=== PATIENT | female | born 1955 | race Caucasian/White ===

== ENCOUNTER 2017-02-12 19:28 | Inpatient (IN) | payer OTHER ==
[~2017-02-12] VITALS: Ht 157.5 cm; Wt 72.6 kg
[2017-02-12 20:24] LABS: BASOPHIL % 0.2 % (0-2); PLATELET COUNT 257 x10^3mcL (130-400)
[2017-02-12 20:32] LABS: CALCIUM 8.6 mg/dL (8.5-10.1); CARBON DIOXIDE 30.2 mmol/L (21-32); CHLORIDE SERUM 104 mmol/L (98-107); CREATININE SERUM 0.8 mg/dL (0.6-1.0); GFR1 > 60 mL/min; GLUCOSE SERUM 94 mg/dL (74-106); POTASSIUM SERUM 3.2 mmol/L (3.5-5.1); SODIUM SERUM 141 mmol/L (136-145)
[2017-02-12 20:37] LABS: ALBUMIN 3.5 g/dL (3.4-5.0); ALKALINE PHOSPHATASE 90 U/L (46-116); ALT/SGPT 18 U/L (14-59); AST/SGOT 12 U/L (15-37); BILIRUBIN TOTAL 0.5 mg/dL (0.20-1.00); CHOLESTEROL 185 mg/dL (<200); HDL CHOLESTEROL 67 mg/dL (40-60); MAGNESIUM 2.1 mg/dL (1.8-2.4); TOTAL PROTEIN, SERUM 6.9 g/dL (6.4-8.2)
[2017-02-12] MEDS ORDERED: LISINOPRIL20 MG PO (21:08)
[2017-02-12] MEDS ORDERED: PAROXETINE40 M1 PO (21:09)
[2017-02-12 22:44] VITALS: BP 148/77
[2017-02-12 23:32] LABS: UA SPECIFIC GRAVITY <=1.005 (1.005-1.035); microscopic required? YES; urine erythrocyte TRACE (NEGATIVE)
[2017-02-13 05:11] VITALS: BP 135/69
[2017-02-13 07:37] LABS: CALCIUM 8.4 mg/dL (8.5-10.1); CARBON DIOXIDE 30.6 mmol/L (21-32); CHLORIDE SERUM 109 mmol/L (98-107); CREATININE SERUM 0.8 mg/dL (0.6-1.0); GFR1 > 60 mL/min; GLUCOSE SERUM 98 mg/dL (74-106); POTASSIUM SERUM 3.8 mmol/L (3.5-5.1); SODIUM SERUM 144 mmol/L (136-145)
[2017-02-13 09:30] VITALS: BP 131/75
[2017-02-13 13:20] VITALS: BP 126/75
[2017-02-13 17:22] VITALS: BP 124/71
[2017-02-13 21:41] VITALS: BP 125/93
[2017-02-14 06:02] VITALS: BP 112/60
[2017-02-14 06:23] LABS: CALCIUM 8.5 mg/dL (8.5-10.1); CARBON DIOXIDE 32.3 mmol/L (21-32); CHLORIDE SERUM 108 mmol/L (98-107); CREATININE SERUM 0.8 mg/dL (0.6-1.0); GFR1 > 60 mL/min; GLUCOSE SERUM 91 mg/dL (74-106); PHOSPHOROUS 3.5 mg/dL (2.5-4.9); POTASSIUM SERUM 4.2 mmol/L (3.5-5.1); SODIUM SERUM 141 mmol/L (136-145)
[2017-02-14 06:41] LABS: BASOPHIL % 0.4 % (0-2); PLATELET COUNT 225 x10^3mcL (130-400); RED CELL DISTRIBUTION WIDTH 13.3 % (11.5-14.5)
[2017-02-14 09:29] VITALS: BP 123/65
[2017-02-14] MEDS ORDERED: TEARS AGAIN15 ML OP ×2 (13:56→15:58)
[2017-02-14] MEDS ORDERED: MAC100 PO ×2 (13:57→15:58)
[2017-02-14] MEDS ORDERED: BD LACTINEX1.4 MG PO ×2 (13:58→15:58)
[2017-02-14 14:22] VITALS: BP 123/65
== END 2017-02-14 16:05 | disposition home or self-care (01) | DRG 48 ==
LOC: ED 19:28 → DU 21:00 → MU 02-14 06:43
PROVIDERS: Emergency Medicine; ADMIT Family Medicine
DX: G90.9 Disorder of the autonomic nervous system, unspecified (principal); I10 Essential (primary) hypertension; H57.12 Ocular pain, left eye; E87.6 Hypokalemia; Z68.29 Body mass index [BMI] 29.0-29.9, adult; F32.9 Major depressive disorder, single episode, unspecified; N39.0 Urinary tract infection, site not specified
CPT/HCPCS: 83880; J7030; J8597; Q0092

== ENCOUNTER 2017-02-24 08:57 | Emergency (ER) | payer OTHER ==
[~2017-02-24 08:57] MED LIST: BD LACTINEX1.4 MG PO; LISINOPRIL20 MG PO; MAC100 PO; PAROXETINE40 M1 PO; TEARS AGAIN15 ML OP
[2017-02-24 09:51] LABS: BASOPHIL % 0.4 % (0-2); PLATELET COUNT 290 x10^3mcL (130-400); RED CELL DISTRIBUTION WIDTH 13.6 % (11.5-14.5)
[2017-02-24 09:58] LABS: CALCIUM 8.8 mg/dL (8.5-10.1); CARBON DIOXIDE 30.5 mmol/L (21-32); CHLORIDE SERUM 103 mmol/L (98-107); CREATININE SERUM 0.8 mg/dL (0.6-1.0); GFR1 > 60 mL/min; GLUCOSE SERUM 96 mg/dL (74-106); POTASSIUM SERUM 3.5 mmol/L (3.5-5.1); SODIUM SERUM 140 mmol/L (136-145)
[2017-02-24 10:03] LABS: ALBUMIN 3.9 g/dL (3.4-5.0); ALKALINE PHOSPHATASE 110 U/L (46-116); ALT/SGPT 21 U/L (14-59); AST/SGOT 12 U/L (15-37); BILIRUBIN TOTAL 0.4 mg/dL (0.20-1.00); TOTAL PROTEIN, SERUM 7.6 g/dL (6.4-8.2)
[2017-02-24 11:26] VITALS: BP 143/78
== END 2017-02-24 11:26 | disposition home or self-care (01) ==
LOC: ED 08:57
PROVIDERS: Emergency Medicine
DX: I16.0 Hypertensive urgency (principal)
CPT/HCPCS: 36415; 83880; J1885; Q0092

== ENCOUNTER 2017-03-29 01:38 | Inpatient (IN) | payer OTHER ==
[~2017-03-29] VITALS: Ht 157.5 cm; Wt 79.5 kg
[2017-03-29 02:29] LABS: RED CELL DISTRIBUTION WIDTH 12.5 % (11.5-14.5)
[2017-03-29 02:33] LABS: CALCIUM 8.6 mg/dL (8.5-10.1); CARBON DIOXIDE 31.3 mmol/L (21-32); CHLORIDE SERUM 105 mmol/L (98-107); CREATININE SERUM 0.7 mg/dL (0.6-1.0); GFR1 > 60 mL/min; GLUCOSE SERUM 96 mg/dL (74-106); SODIUM SERUM 140 mmol/L (136-145)
[2017-03-29 02:38] LABS: ALKALINE PHOSPHATASE 78 U/L (46-116); ALT/SGPT 16 U/L (14-59); AST/SGOT 15 U/L (15-37); BILIRUBIN TOTAL 0.53 mg/dL (0.20-1.00); LIPASE 147 IU/L (73-393); TOTAL PROTEIN, SERUM 6.4 g/dL (6.4-8.2)
[2017-03-29 02:39] LABS: ALBUMIN 3.3 g/dL (3.4-5.0)
[2017-03-29 03:10] LABS: BASOPHIL % 4.1 % (0-2); PLATELET COUNT 250 x10^3mcL (130-400)
[2017-03-29 03:23] LABS: UA SPECIFIC GRAVITY <=1.005 (1.005-1.035); microscopic required? YES; urine erythrocyte 3+ (NEGATIVE)
[2017-03-29 05:06] LABS: T3 TOTAL 1.03 ng/mL
[2017-03-29 05:14] VITALS: BP 142/75
[2017-03-29 05:16] LABS: MAGNESIUM 1.8 mg/dL (1.8-2.4); PHOSPHOROUS 3.8 mg/dL (2.5-4.9)
[2017-03-29 05:25] LABS: CHOLESTEROL/HDL RATIO 2.5
[2017-03-29 05:28] LABS: FREE T4 1.3 ng/dL (0.76-1.46); FREE THYROXINE INDEX 2.8 ug/dL (1.4-4.5); T4(THYROXINE) 7.5 ug/dL (4.7-13.3)
[2017-03-29 08:37] LABS: AMPHETAMINE QUAL UR NONE DETECTED (NEG <=1000)
[2017-03-29 13:40] VITALS: BP 124/67
[2017-03-29 18:00] VITALS: BP 150/77
[2017-03-29 21:11] VITALS: BP 154/87
[2017-03-30 06:04] VITALS: BP 151/77
[2017-03-30 06:40] LABS: BASOPHIL % 0.4 % (0-2); PLATELET COUNT 192 x10^3mcL (130-400); RED CELL DISTRIBUTION WIDTH 13.5 % (11.5-14.5)
[2017-03-30 06:43] LABS: CALCIUM 8.5 mg/dL (8.5-10.1); CARBON DIOXIDE 30.5 mmol/L (21-32); CHLORIDE SERUM 108 mmol/L (98-107); CREATININE SERUM 0.6 mg/dL (0.6-1.0); GFR1 > 60 mL/min; GLUCOSE SERUM 89 mg/dL (74-106); POTASSIUM SERUM 3.7 mmol/L (3.5-5.1); SODIUM SERUM 145 mmol/L (136-145)
[2017-03-30 11:00] VITALS: BP 124/62
[2017-03-30 12:20] VITALS: BP 120/63
[2017-03-30 14:06] VITALS: BP 115/56
[2017-03-30 17:12] VITALS: BP 139/70
[2017-03-30 20:20] VITALS: BP 136/69
[2017-03-30 20:29] VITALS: Ht 157.5 cm; Wt 79.5 kg
[2017-03-31 05:38] VITALS: BP 141/68
[2017-03-31 06:19] LABS: CALCIUM 8.8 mg/dL (8.5-10.1); CHLORIDE SERUM 107 mmol/L (98-107); CREATININE SERUM 0.7 mg/dL (0.6-1.0); GFR1 > 60 mL/min; GLUCOSE SERUM 95 mg/dL (74-106); POTASSIUM SERUM 3.6 mmol/L (3.5-5.1); SODIUM SERUM 144 mmol/L (136-145)
[2017-03-31 06:26] LABS: BASOPHIL % 0.2 % (0-2); PLATELET COUNT 208 x10^3mcL (130-400); RED CELL DISTRIBUTION WIDTH 13.2 % (11.5-14.5)
[2017-03-31 10:14] VITALS: BP 143/68
[2017-03-31 14:10] VITALS: BP 125/71
[2017-03-31 18:00] VITALS: BP 145/67
[2017-03-31 20:59] VITALS: BP 157/69
[2017-04-01 05:55] VITALS: BP 155/76
[2017-04-01 07:02] LABS: CALCIUM 8.4 mg/dL (8.5-10.1); CARBON DIOXIDE 32.5 mmol/L (21-32); CHLORIDE SERUM 107 mmol/L (98-107); CREATININE SERUM 0.7 mg/dL (0.6-1.0); GFR1 > 60 mL/min; GLUCOSE SERUM 91 mg/dL (74-106); POTASSIUM SERUM 3.4 mmol/L (3.5-5.1); SODIUM SERUM 143 mmol/L (136-145)
[2017-04-01 07:03] LABS: BASOPHIL % 0.3 % (0-2); PLATELET COUNT 187 x10^3mcL (130-400); RED CELL DISTRIBUTION WIDTH 13.2 % (11.5-14.5)
[2017-04-01 08:42] VITALS: BP 124/66
[2017-04-01 13:42] VITALS: BP 142/66
[2017-04-01 18:05] VITALS: BP 142/67
[2017-04-01 22:29] VITALS: BP 143/67
[2017-04-02 06:35] VITALS: BP 149/70
[2017-04-02 06:41] LABS: CALCIUM 8.6 mg/dL (8.5-10.1); CARBON DIOXIDE 29.1 mmol/L (21-32); CHLORIDE SERUM 102 mmol/L (98-107); CREATININE SERUM 0.7 mg/dL (0.6-1.0); GFR1 > 60 mL/min; GLUCOSE SERUM 83 mg/dL (74-106); SODIUM SERUM 142 mmol/L (136-145)
[2017-04-02 07:07] LABS: BASOPHIL % 0.3 % (0-2); PLATELET COUNT 217 x10^3mcL (130-400)
[2017-04-02 07:35] VITALS: BP 148/71
[2017-04-02 14:21] VITALS: BP 128/69
[2017-04-02 17:49] VITALS: BP 148/71
[2017-04-02 20:55] VITALS: BP 142/66
[2017-04-03 05:45] VITALS: BP 164/77
[2017-04-03 06:24] LABS: BASOPHIL % 0.5 % (0-2); PLATELET COUNT 200 x10^3mcL (130-400); RED CELL DISTRIBUTION WIDTH 13.2 % (11.5-14.5)
[2017-04-03 06:47] LABS: CALCIUM 8.7 mg/dL (8.5-10.1); CARBON DIOXIDE 29.4 mmol/L (21-32); CHLORIDE SERUM 107 mmol/L (98-107); CREATININE SERUM 0.6 mg/dL (0.6-1.0); GFR1 > 60 mL/min; GLUCOSE SERUM 93 mg/dL (74-106); POTASSIUM SERUM 3.1 mmol/L (3.5-5.1); SODIUM SERUM 146 mmol/L (136-145)
[2017-04-03 07:30] VITALS: BP 149/60
[2017-04-03] MEDS ORDERED: TRAMADOL HCL50 MG PO (09:04)
[2017-04-03] MEDS ORDERED: COLACE100 MG PO (09:05)
[2017-04-03 09:06] VITALS: BP 124/69
[2017-04-03 13:33] VITALS: BP 124/69
== END 2017-04-03 15:13 | disposition home or self-care (01) | DRG 227 ==
LOC: ED 01:38 → DU 03:29 → MU 04-01 23:53
PROVIDERS: Emergency Medicine; Surgery; ADMIT Family Medicine
PROC: 0WQF0ZZ Repair Abdominal Wall, Open Approach (ICD-10-PCS; principal; 2017-03-30 08:00)
DX: K42.0 Umbilical hernia with obstruction, without gangrene (principal); E44.0 Moderate protein-calorie malnutrition; E87.6 Hypokalemia; N39.0 Urinary tract infection, site not specified; R31.9 Hematuria, unspecified; F32.9 Major depressive disorder, single episode, unspecified; I10 Essential (primary) hypertension; Z68.32 Body mass index [BMI] 32.0-32.9, adult; Z86.73 Personal history of transient ischemic attack (TIA), and cerebral infarction without residual deficits
CPT/HCPCS: 83880; 84439; 94150; 97110-GP; 97116-GP; 97530-GP; J0330; J0690; J0696; J1170; J1885; J2250; J2270; J2405; J2704; J3010; J3480; J3490; J7030; J7050; J7120; Q0092; Q9967

== ENCOUNTER 2017-11-23 08:17 | Emergency (ER) | payer OTHER ==
[~2017-11-23] VITALS: Ht 157.5 cm; Wt 83.5 kg
[~2017-11-23 08:17] MED LIST changes: +COLACE100 MG PO; +TRAMADOL HCL50 MG PO
[2017-11-23 08:21] VITALS: Ht 157.5 cm; Wt 83.5 kg
[2017-11-23 08:47] LABS: BASOPHIL % 0.3 % (0-2); PLATELET COUNT 250 x10^3mcL (130-400); RED CELL DISTRIBUTION WIDTH 13.8 % (11.5-14.5)
[2017-11-23 09:26] LABS: CALCIUM 9.5 mg/dL (8.5-10.1); CARBON DIOXIDE 29.4 mmol/L (21-32); CHLORIDE SERUM 101 mmol/L (98-107); CREATININE SERUM 0.8 mg/dL (0.6-1.0); GFR1 > 60 mL/min; GLUCOSE SERUM 105 mg/dL (74-106); POTASSIUM SERUM 4.1 mmol/L (3.5-5.1); SODIUM SERUM 137 mmol/L (136-145)
[2017-11-23 09:36] LABS: ALKALINE PHOSPHATASE 100 U/L (46-116); ALT/SGPT 29 U/L (14-59); AST/SGOT 19 U/L (15-37); BILIRUBIN TOTAL 1.58 mg/dL (0.20-1.00); TOTAL PROTEIN, SERUM 7.7 g/dL (6.4-8.2)
[2017-11-23 12:01] VITALS: BP 126/55
== END 2017-11-23 13:57 | disposition home or self-care (01) ==
LOC: ED 08:17
DX: R07.89 Other chest pain (principal); R51 Headache; I10 Essential (primary) hypertension; Z86.73 Personal history of transient ischemic attack (TIA), and cerebral infarction without residual deficits
CPT/HCPCS: 36415; 83880; Q0092

== ENCOUNTER 2018-01-15 11:17 | Inpatient (IN) | payer OTHER ==
[~2018-01-15] VITALS: Ht 157.5 cm; Wt 83.6 kg
[2018-01-15 11:51] LABS: BASOPHIL % 0.5 % (0-2); PLATELET COUNT 285 x10^3mcL (130-400)
[2018-01-15 11:58] LABS: CARBON DIOXIDE 30.6 mmol/L (21-32); CHLORIDE SERUM 103 mmol/L (98-107); CREATININE SERUM 0.9 mg/dL (0.6-1.0); GFR1 > 60 mL/min; GLUCOSE SERUM 132 mg/dL (74-106); SODIUM SERUM 142 mmol/L (136-145)
[2018-01-15 12:00] LABS: POTASSIUM SERUM 2.9 mmol/L (3.5-5.1)
[2018-01-15] MEDS ORDERED: FUROSEMIDE20 MG PO (12:28)
[2018-01-15] MEDS ORDERED: LISINOPRIL40 MG PO (12:28)
[2018-01-15] MEDS ORDERED: PAXIL CR25 MG PO (12:28)
[2018-01-15 13:12] LABS: MAGNESIUM 1.9 mg/dL (1.8-2.4); PHOSPHOROUS 3.4 mg/dL (2.5-4.9)
[2018-01-15 13:13] LABS: CHOLESTEROL/HDL RATIO 2.5
[2018-01-15 13:14] LABS: T3 TOTAL 0.96 ng/mL
[2018-01-15 13:23] LABS: FREE T4 1.07 ng/dL (0.76-1.46); FREE THYROXINE INDEX 2.5 ug/dL (1.4-4.5); T4(THYROXINE) 7.7 ug/dL (4.7-13.3)
[2018-01-15 13:36] VITALS: BP 148/85
[2018-01-15 13:46] VITALS: Ht 157.5 cm; Wt 83.6 kg
[2018-01-15 14:06] VITALS: BP 102/61
[2018-01-15 18:05] VITALS: BP 125/66
[2018-01-15 19:39] LABS: CALCIUM 8.5 mg/dL (8.5-10.1); CARBON DIOXIDE 27.3 mmol/L (21-32); CHLORIDE SERUM 110 mmol/L (98-107); CREATININE SERUM 0.9 mg/dL (0.6-1.0); GFR1 > 60 mL/min; GLUCOSE SERUM 100 mg/dL (74-106); POTASSIUM SERUM 3.6 mmol/L (3.5-5.1); SODIUM SERUM 145 mmol/L (136-145)
[2018-01-15 21:05] VITALS: BP 122/61
[2018-01-16 04:38] VITALS: BP 144/79
[2018-01-16 06:07] LABS: BASOPHIL % 0.4 % (0-2); PLATELET COUNT 245 x10^3mcL (130-400); RED CELL DISTRIBUTION WIDTH 14.3 % (11.5-14.5)
[2018-01-16 06:23] LABS: CALCIUM 8.5 mg/dL (8.5-10.1); CARBON DIOXIDE 29.2 mmol/L (21-32); CHLORIDE SERUM 111 mmol/L (98-107); CREATININE SERUM 0.8 mg/dL (0.6-1.0); GFR1 > 60 mL/min; GLUCOSE SERUM 100 mg/dL (74-106); POTASSIUM SERUM 4.5 mmol/L (3.5-5.1); SODIUM SERUM 146 mmol/L (136-145)
[2018-01-16 10:20] VITALS: BP 146/83
[2018-01-16 13:15] LABS: microscopic required? YES; urine erythrocyte NEGATIVE (NEGATIVE)
[2018-01-16 13:47] LABS: AMPHETAMINE QUAL UR NONE DETECTED (See below)
[2018-01-16 14:14] VITALS: BP 103/63
[2018-01-16 16:37] VITALS: BP 103/63
[2018-01-16 17:30] VITALS: BP 142/84
== END 2018-01-16 21:09 | disposition home or self-care (01) | DRG 756 ==
LOC: ED 11:17 → DU 12:19
PROVIDERS: Emergency Medicine; Family Medicine
DX: F41.9 Anxiety disorder, unspecified (principal); F33.1 Major depressive disorder, recurrent, moderate; I10 Essential (primary) hypertension; E87.6 Hypokalemia; Z86.73 Personal history of transient ischemic attack (TIA), and cerebral infarction without residual deficits; Z82.3 Family history of stroke; F43.10 Post-traumatic stress disorder, unspecified; F41.1 Generalized anxiety disorder
CPT/HCPCS: 83880; 84439; J2270; J3010; J3480; J7030; Q0092

== ENCOUNTER 2018-02-15 09:04 | Emergency (ER) | payer OTHER ==
[~2018-02-15] VITALS: Ht 157.5 cm; Wt 81.6 kg
[~2018-02-15 09:04] MED LIST changes: +FUROSEMIDE20 MG PO; +LISINOPRIL40 MG PO; +PAXIL CR25 MG PO
[2018-02-15 09:12] VITALS: Ht 157.5 cm; Wt 81.6 kg
[2018-02-15 11:33] VITALS: BP 129/55
== END 2018-02-15 11:33 | disposition home or self-care (01) ==
LOC: ED 09:04
DX: M54.9 Dorsalgia, unspecified (principal)
CPT/HCPCS: J1885; J3010; J3490

== ENCOUNTER 2018-02-25 15:27 | Emergency (ER) | payer OTHER ==
[~2018-02-25] VITALS: Ht 157.5 cm; Wt 87.5 kg
[2018-02-25 15:48] VITALS: Ht 157.5 cm; Wt 87.5 kg
== END 2018-02-25 17:33 | disposition home or self-care (01) ==
LOC: ED 15:27
DX: S82.832A Other fracture of upper and lower end of left fibula, initial encounter for closed fracture (principal); F32.9 Major depressive disorder, single episode, unspecified; I10 Essential (primary) hypertension; W01.0XXA Fall on same level from slipping, tripping and stumbling without subsequent striking against object, initial encounter; Y93.89 Activity, other specified; Y92.89 Other specified places as the place of occurrence of the external cause; Y99.8 Other external cause status

== ENCOUNTER 2018-05-29 09:15 | Emergency (ER) | payer OTHER | END 2018-05-29 14:32 | disposition short-term general hospital (02) | LOC: ED 09:15 ==

== ENCOUNTER 2018-11-16 22:49 | Inpatient (IN) | payer OTHER ==
[~2018-11-16] VITALS: Ht 157.5 cm; Wt 78.0 kg
[2018-11-16 22:53] VITALS: Ht 157.5 cm; Wt 78.0 kg
--- NOTE | 2018-11-16 23:07 | NUR ---
PT BIB [facility] FROM HOME S/P OVERDOSE OF AMBIEN. PER MEDIC, PT WAS FOUND IN BATHROOM BY FAMILY WITH AMBIEN BOTTLE MISSING 20 PILLS. PT PLACED IN BED AND MONITOR APPLIED. PT AAOX3, CONFUSED TO DATE/TIME, AWAKENS TO VOICE STIMULI AND ABLE TO ANSWER QUESTIONS. PT STATES SHE TOOK 10 AMBIEN PILLS. PT DENIES ANY SI, STATING SHE TOOK THE PILLS 'BECAUSE SOMEONE WAS GOING TO TAKE THEM AWAY FROM ME'. PER MEDIC, PT WAS HAVING SOME FAMILY ISSUES THIS EVENING. PT WAS FOUND WITH INCONTINENCE OF STOOL. NO SIGNS OF TRAUMA/INJURY AT THIS TIME.
[2018-11-16 23:49] LABS: microscopic required? NO
[2018-11-16 23:59] LABS: BASOPHIL % 0.5 % (0-2); PLATELET COUNT 210 x10^3mcL (130-400); RED CELL DISTRIBUTION WIDTH 13.9 % (11.5-14.5)
[2018-11-17 00:01] LABS: urine erythrocyte NEGATIVE (NEGATIVE)
[2018-11-17 00:12] LABS: CALCIUM 8.8 mg/dL (8.5-10.1); CARBON DIOXIDE 28.5 mmol/L (21-32); CHLORIDE SERUM 106 mmol/L (98-107); CREATININE SERUM 0.8 mg/dL (0.6-1.0); GFR1 > 60 mL/min; GLUCOSE SERUM 99 mg/dL (74-106); POTASSIUM SERUM 3.6 mmol/L (3.5-5.1); SODIUM SERUM 145 mmol/L (136-145)
--- NOTE | 2018-11-17 00:13 | NUR ---
PT RESTING IN BED WITH EYES CLOSED WITH BREATHS EVEN AND UNLABORED WITH NO SIGNS OF DISTRESS AT THIS TIME.
[2018-11-17 00:17] LABS: ALBUMIN 3.4 g/dL (3.4-5.0); ALKALINE PHOSPHATASE 63 U/L (46-116); ALT/SGPT 20 U/L (14-59); AST/SGOT 10 U/L (15-37); BILIRUBIN TOTAL 0.4 mg/dL (0.20-1.00); TOTAL PROTEIN, SERUM 6.3 g/dL (6.4-8.2)
[2018-11-17 01:07] LABS: AMPHETAMINE QUAL UR NONE DETECTED (See below)
--- NOTE | 2018-11-17 01:26 | NUR ---
PT SITTING UP IN BED EATING A SNACK. OK PER DR ZHU.
[2018-11-17 01:30] LABS: MAGNESIUM 1.8 mg/dL (1.8-2.4); PHOSPHOROUS 3.4 mg/dL (2.5-4.9)
--- NOTE | 2018-11-17 01:32 | NUR ---
REPORT GIVEN FROM SHEILA PARKER. ASSUMING CARE OF PT AT THIS TIME.
--- NOTE | 2018-11-17 02:09 | NUR ---
REPORT GIVEN TO ZAID PARKER.
--- NOTE | 2018-11-17 02:18 | NUR ---
RECIEVED PATIENT FROM ED VIA GURNEY ACCOMPANIED BY NURSE. PATIENT IS LETHARGIC BUT AROUSABLE BY VERABL STIMULI. A/O TO PERSON PLACE AND SITUATION BUT NOT TIME. SEIZURE PRECAUTIONS IN PLACE DUE TO PATIENTS VERBAL REPORT OF SEIZURE WITHIN LAST MONTH. ON TELE 22, NSR 89. DENIES PAIN. NO SOB ON RA, SATTING 96% BREATHS REGULAR AND EVEN. LUNGS CTAB. NO EDEMA NOTED TO BUE/BLE, PULSES MODERATE, CAP REFILL BRISK. BRUISE NOTED ON LEFT KNEE AND LEFT BUTTOX. BS ACTIVE, ABDOMEN OBESE AND SOFT. PATIENT HAD EPISODE OF LOOSE STOOL IN ED. PATIENT REPORTS SHE IS OTHERWISE CONTINENT OF STOOL AND URINE. IV TO RH IS INFUSING NS AT 250 ML/HR. PATIENT REPORTS SHE TOOK THE OVERDOSE OF AMBIEN BECAUSE SHE WAS DEPRESSED ABOUT HER DAUGHTER AND WASNT THINKING STRAIGHT. PATIENT REPORTS HX OF SUICIDE IDEALATION. SHE STATES SHE IS NOT CURRENTLY SUICIDAL. SAFETY PRECAUTIONS AND FALL RISK EDUCATION REINFORCED. CALL LIGHT WITHIN REACH.
--- NOTE | 2018-11-17 02:20 | NUR ---
PT TRANSFERED TO ROOM 222B AT THIS TIME IN NAD, BREATHING EVEN AND UNLABORED. PT A&0X4, SPEECH IS SLURRED. PT IS SLOW TO RESPOND BUT ANSWERS QUESTIONS APPROPRIATELY AND AWAKENS TO VERBAL TO STIMULI. PT VERBALIZED UNDERSTANDING OF PLAN OF CARE. PT TRANSFERED VIA [facility] ACCOMPANIED BY MYSELF RN AN ROSEANNE RAMOS. ZAID RN AT BEDSIDE TO ASSUME CARE OF PT.
[2018-11-17 03:01] VITALS: BP 103/53
[2018-11-17 06:31] VITALS: BP 105/56
[2018-11-17 06:38] LABS: BASOPHIL % 0.1 % (0-2); PLATELET COUNT 198 x10^3mcL (130-400); RED CELL DISTRIBUTION WIDTH 14.1 % (11.5-14.5)
--- NOTE | 2018-11-17 06:49 | NUR ---
NO SIGNIFICNAT EVENTS THIS SHIFT. BED LOCKED AND IN LOWEST POSIITON. CALL LIGHT AND BEDSIDE TABLE WITHIN REACH. WILL ENDORSE CARE TO DAYSHIFT NURSE.
[2018-11-17 07:14] LABS: CALCIUM 8.1 mg/dL (8.5-10.1); CARBON DIOXIDE 27.3 mmol/L (21-32); CHLORIDE SERUM 109 mmol/L (98-107); CREATININE SERUM 0.6 mg/dL (0.6-1.0); GFR1 > 60 mL/min; GLUCOSE SERUM 87 mg/dL (74-106); POTASSIUM SERUM 3.2 mmol/L (3.5-5.1); SODIUM SERUM 146 mmol/L (136-145)
--- NOTE | 2018-11-17 08:00 | NUR ---
SHIFT ASSESSMENT DONE. PATIENT DROWSY, AROUSABLE W/ VERBRAL STIMULI. DISORIENTED TO PLACE AND TIME. TELE#22; SR; HR = 76. NO RESP DISTRESS ON RA. BREATHING SOUND CLEAR MIKI. ABD FLAT/SOFT. DENIED PAIN. IVF OF NS 100CC/HR; IV SITE TO R HAND INTACT. PATIENT STATED THAT SHE TOOK 10 PILLS OF AMBEIN FOR SUICIDAL ATTEMPTION. BUT NO SUICIDAL IDEATION NOW. BED ALARM ON. CALL LIGHT IN REACH. CLOSELY MONITOR.
[2018-11-17 09:32] VITALS: BP 112/60
--- NOTE | 2018-11-17 10:00 | NUR ---
DR. GOLDMAN AND MEDICAL TEAM MADE MORNING ROUND. REPORTED TO DR. SINGH WITH PATIENT'S POTASSIUM LEVEL 3.2; LASIX HOLD DUE TO POTASSIUM LOW (PATIENT HAD NO ORDER OF DIET. IVF OF NS 100CC/HR. B/P 112/60, LISINOPRIL 20MG PO GIVEN).
--- NOTE | 2018-11-17 12:24 | NUR ---
KCL 40 MEQ PO GIVEN PER ORDER.
[2018-11-17 14:09] VITALS: BP 101/55
--- NOTE | 2018-11-17 15:40 | NUR ---
TELE NEURO CONSULTATION DONE. DR. SINGH WAS AWARE OF.
--- NOTE | 2018-11-17 18:09 | NUR ---
C/O BACK PAIN 01/07; NORCO 7.5/325 PO GIVEN. CONTINUE MONITOR.
--- NOTE | 2018-11-17 18:45 | NUR ---
STATED BACK PAIN STILL ON 12/07. ENDORSED CARE TO NOC FOR CONTINUE MONITOR. PATIENT TOLERATED REGULAR DIET. BRP. CALL LIGHT IN REACH.
[2018-11-17 19:11] VITALS: BP 125/68
--- NOTE | 2018-11-17 19:36 | NUR ---
RECIEVED PT IN BED WITH NO ACUTE DISTRESS NOTED, ASSESSMENT PERFORMED, PT IS A/0X4 NO COMPLAINTS OF TOLBERT OR DIZZINESS ATT THIS TIME, PT DENIES PAIN OR SOB, SAFETY PRECAUTIONS IN PLACE, WILL CONTINUE TO MONITOR
[2018-11-17 21:00] VITALS: BP 110/62
--- NOTE | 2018-11-17 22:45 | NUR ---
PT HAVING TROUBLE SLEEPING, REQUESTING AMBIEN, CONTACTED DR CRAWFORD, PUT IN ORDER FOR AMBIEN, ADMINISTERED PER ORDER.
--- NOTE | 2018-11-18 02:55 | NUR ---
PT RESTING IN BED WITH EYES CLOSED, NO ACUTE RESPIRATORY DISRESS NOTED, SAFETY PRECAUTIONS IN PLACE, WILL CONTINUE TO MONITOR
[2018-11-18 04:53] VITALS: BP 111/63
--- NOTE | 2018-11-18 05:44 | NUR ---
PT RESTED THROUGH THE NIGHT. HAD ONE EPISODE OF PAIN THAT RESOLVED WITH ADMINISTRATION OF PRN NORCO PER ORDER, PT CALM STABLE AND COMFORTABLE, SAFETY PRECAUTIONS MAINTAINED THROUGH THE NIGHT, WILL CONITNUE TO MONITOR AND ENDORSE CARE TO ONCOMING RN
[2018-11-18 06:36] LABS: BASOPHIL % 0.4 % (0-2); PLATELET COUNT 173 x10^3mcL (130-400); RED CELL DISTRIBUTION WIDTH 14.5 % (11.5-14.5)
[2018-11-18 06:43] LABS: CALCIUM 8.5 mg/dL (8.5-10.1); CARBON DIOXIDE 26.9 mmol/L (21-32); CHLORIDE SERUM 113 mmol/L (98-107); CREATININE SERUM 0.7 mg/dL (0.6-1.0); GFR1 > 60 mL/min; GLUCOSE SERUM 88 mg/dL (74-106); PHOSPHOROUS 3.8 mg/dL (2.5-4.9); SODIUM SERUM 146 mmol/L (136-145)
[2018-11-18 08:57] VITALS: BP 102/59
--- NOTE | 2018-11-18 11:50 | NUR ---
NORCO 7.5MG PO GIVEN FOR ABDOMINAL PAIN 11/06. EXTRA FLUIDS GIVEN. PT REPOSTIONED FOR COMFORT. RESP EVEN AND UNLABORED. NO DISTRESS NOTED. CALL LIGHT WITHIN REACH.
--- NOTE | 2018-11-18 11:50 | NUR ---
NORCO PO GIVEN FOR ACHING BACK PAIN 11/06. FLUIDS ENCOURAGED. DUE MEDS GIVEN AND TOLERATED WELL. RESP EVEN AND UNLABORED. CALL LIGHT WITHIN REAC.
[2018-11-18] MEDS ORDERED: NOR5 PO (12:09)
[2018-11-18] MEDS ORDERED: AMBIEN5 MG PO (12:09)
[2018-11-18] MEDS ORDERED: BACLOFEN10 MG PO (12:11)
--- NOTE | 2018-11-18 12:12 | NUR ---
CALLED PT OUTSIDE [facility] TO VERIFY ALL MEDICATION PT IS ON SINCE PT IS CLAIMING THAT SHE IS TAKING SEIZURE MEDICATION. GOT THE LISTS OF PT MEDICATION AND I UPDATED PT MEDICATION RECONCILIATION AND SHOWED TO HUMAIRA(N.P.) LIST OF PT MEDICATION FROM OUTSIDE PHARMACY. LEAH PARKER ASSIGNED TO THIS PT MADE AWARE OF ABOVE.
[2018-11-18 13:23] VITALS: BP 109/60
[2018-11-18] MEDS ORDERED: DEPAKOTE250 MG PO (14:07)
[2018-11-18] MEDS ORDERED: NIT0.4 SL (14:12)
[2018-11-18] MEDS ORDERED: EPZICOM1 TAB (14:13)
[2018-11-18 16:31] VITALS: BP 111/62
--- NOTE | 2018-11-18 16:41 | NUR ---
DUE MEDS GIVEN AND TOLERATED WELL. IV FLUIDS REPLENISHED. RESP EVEN AND UNLABORED. DENIES PAIN AT THIS TIME. NO DISTRESS NOTED. CALL LIGHT WITHIN REACH.
--- NOTE | 2018-11-18 18:24 | NUR ---
PT IS AAOX4. RESP EVEN AND UNLABORED. ON R/A. TELE [address] READING NSR. PT DENIES N/V/D. SKIN CDI. IV CATH TO RH PATENT. SITE WNL. NO S/S OF INFECTION NOTED. DENIES PAIN AT THIS TIME. CALL LIGHT WITHIN REACH. BED IN LOWEST POSITION.
--- NOTE | 2018-11-18 18:27 | NUR ---
RECEIVED PT AAOX4. RESP EVEN AND UNLABORED. LUNG SOUNDS CTA. NO COUGH OR SOB. NORMAL S1S2 NOTED. TELE [address] READING NSR. ABDOMEN SOFT, ROUND, NONDISTENDED. PT DENIES N/V. SKIN CDI. NO EDEMA NOTED. PERIPHERAL PULSES MODERATELY PALPABLE. DENIES NUMBNESS AND TINGLING. IV CATH TO WITH FLUIDS RUNNING. SITE WNL. DENIE PAIN. CALL LIGHT WITHIN REACH. BED IN LOWEST POSITION.
--- NOTE | 2018-11-18 19:10 | NUR ---
DR BOLANOS AT BEDSIDE AND LACY PT.
--- NOTE | 2018-11-18 19:30 | NUR ---
PT SEEN, RESTING IN BED, ALERT AND ORIENTED, DENIES HEADACHE OR DIZZINESS, BREATHING EVEN AND UNLABORED, LUNG SOUNDS CLEAR, ON ROOM AIR WITH NO RESP DISTRESS NOTED, ON TELE#22 NSR, DENIES CHEST PAIN, IVF INFUSING WELL, PULSES PALPABLE, NO EDEMA NOTED, MILD GENERALIZED WEAKNESS, ABD SOFT AND FLAT WITH ACTIVE BS, NO BM AT THIS TIME, DENIES ABD PAIN, VOIDING FREELY, NO DISTRESS NOTED, WILL KEEP TO MONITOR.
[2018-11-18 21:18] VITALS: BP 104/55
[2018-11-19 05:35] VITALS: BP 96/61
--- NOTE | 2018-11-19 06:20 | NUR ---
PT AWAKE AND RESTING IN BED, SLEPT ON AND OFF WHOLE NIGHT, C/O OF LOWER BACK PAIN AND MEDICATED WITH NORCO PO X 2 WITH MOD RELIEF, SZ PRECAUTION IN PLACE, NO DISTRESS NOTED, WILL KEEP TO MONITOR.
--- NOTE | 2018-11-19 07:30 | NUR ---
PT SEEN, RESTING IN BED, ALERT AND ORIENTED, DENIES HEADACHE OR DIZZINESS, SZ PRECAUTION IN PLACE, BREATHING EVEN AND UNLABORED, LUNG SOUNDS CLEAR, ON ROOM AIR WITH NO RESP DISTRESS NOTED, ON TELE#22 NSR, DENIES CHEST PAIN, IVF INFUSING WELL, PULSES PALPABLE, NO EDEMA NOTED, MILD GENERALIZED WEAKNESS, ABD SOFT AND FLAT WITH ACTIVE BS, NO BM AT THIS TIME, DENIES ABD PAIN, VOIDING FREELY, NO DISTRESS NOTED, WILL KEEP TO MONITOR.
[2018-11-19 08:59] VITALS: BP 100/53
--- NOTE | 2018-11-19 11:03 | NUR ---
PT MADE AWARE OF THAT WITH DISCHARGE ORDERS, PT STATED THAT SHE IS NOT READY TO GO HOME CAUSE SHE HAS BACK PAIN WHEN SHE WALKS AND EVEN WHEN SHE IS IN THE BED, TELEGRAPH OFFICE TELEPHONE CLERK GEMMA AWARE THAT SHE REFUSED TO BE DC TODAY.
--- NOTE | 2018-11-19 11:42 | NUR ---
GEMMA WENT TO PT'S HOME AND TALK TO PT, PER GEMMA THAT OKAY TO HOLD DISCHARGE TODAY.
--- NOTE | 2018-11-19 12:08 | NUR ---
BEDSIDE HANDOFF REPORT GIVEN TO SUZIE-RN, ALL QUESTIONS ANSWERED AND CONCERNS ADDRESSED.
--- NOTE | 2018-11-19 12:13 | NUR ---
RECEIVED ENDORSEMENT FROM KEITH LANDRY.
[2018-11-19 13:21] VITALS: BP 126/57
--- NOTE | 2018-11-19 14:30 | NUR ---
PT IN BED, WATCHING TV. DENIES CHEST PAIN OR DISCOMFORT. NO ACUTE RESPIRATORY DISTRESS NOTED. BED IN LOW POSITION, CALL LIGHT WITHIN REACH. WILL CONTINUE TO MONITOR.
--- NOTE | 2018-11-19 16:30 | NUR ---
PT C/O ACHING BACK PAIN 12/07; GIVEN NORCO 7.5/325 MG PO 1 TAB; REPOSITIONED PT FOR COMFORT, DARKENED ROOM, TURNED OFF TV. WILL CONTINUE TO MONITOR.
[2018-11-19 17:19] VITALS: BP 130/62
--- NOTE | 2018-11-19 17:20 | NUR ---
PT IN BED, WATCHING TV WHILE WAITING FOR DINNER TO COME IN. PT STATES THAT SHE FEELS "FINE" LONG SHE DOES NOT MOVE HER BACK. NO ACUTE RESPIRATORY DISTRESS NOTED. STATED THAT IV SITE MAY HAVE BEEN "PULLED OUT"; IV SITE PATENT, NO LEAKAGE, NO S/S INFECTION OR BLEEDING. SIDE RAILS UP X 2, BED IN LOW POSITION. WILL CONTINUE TO MONITOR.
--- NOTE | 2018-11-19 20:14 | NUR ---
PT IN BED, WATCHING TV, CALM, COOPERATIVE TO CARE AT THIS TIME. NO ACUTE RESPIRATORY DISTRESS, PAIN, OR DISCOMFORT NOTED. PADDED SIDE RAILS UP X 2, BED IN LOW POSITION. WILL CONTINUE TO MONITOR.
[2018-11-19 20:32] VITALS: BP 102/55
--- NOTE | 2018-11-19 21:16 | NUR ---
BEDSIDE HANDOFF REPORT RECEIVED FROM SUZIE-RN, PT SEEN, AWAKE AND CRYING IN BED DUE TO C/O OF SEVERE LOWER BACK PAIN, NORCO 7.5/325 1 TAB VIA ORAL ADMNISTERED PER EMAR, IVF INFUSING WELL, NO DISTRESS NOTED, WILL KEEP TO MONITOR.
--- NOTE | 2018-11-19 21:30 | NUR ---
PT CALLED AND REQUEST TO SPEAK TO RN REGARDING HER DC PLAN TOMORROW, PT STATED THAT SHE WANTS TO GO REHAB OR SNF DUE TO HER BACK PAIN, PT VOICING ABOUT THE CONCNERS ABOUT SHE CAN'T MANAGE WHEN SHE DC HOME DUE TO SHE NEEDS TO PACK AND MOVE TO NEW PLACE, WILL ENDORSE TO MORNING SHIFT NURSE.
[2018-11-20 05:47] VITALS: BP 140/65
--- NOTE | 2018-11-20 05:56 | NUR ---
PT ASLEEP BUT EASILY AROUSABLE, SLEPT MOST OF NIGHT AFTER MEDICATED WITH NORCO AND AMBIEN PO, PT WAS ABLE TO AMBULATE TO RESTROOM BY HERSELF BUT PT C/O OF SEVERE BACK PAIN AFTER BACK TO BED, NORCO PO GIVEN AND WITH GOOD RELIEF, NO DISTRESS NOTED, WILL KEEP TO MONITOR.
--- NOTE | 2018-11-20 07:16 | NUR ---
BEDSIDE HANDOFF REPORT GIVEN TO BENJI, ALL QUESTIONS ANSWERED AND CONCERNS ADDRESSED.
--- NOTE | 2018-11-20 08:00 | NUR ---
SHIFT ASSESSMENT DONE. PATIENT A/A/OX4; NO S/S OF PAIN NOW. NO RESP DISTRESS ON RA. DENIED CHEST PAIN. IVF OF NS 100CC/HR. IV SITE TO R HAND INTACT. C/O BACK PAIN ON AND OFF. AMBULATED WITH PHYSICAL THERAPIST IN HALLWAY 200 FT YESTERDAY. STATED HAD BM THIS AM. CALL LIGHT IN REACH.
--- NOTE | 2018-11-20 08:44 | NUR ---
C/O NAUSEA AND VOMITING AFTER BREAKFAST. ZOFRAN 4MG IVP GIVEN. CONTINUE MONTIOR.
--- NOTE | 2018-11-20 09:30 | NUR ---
PATIENT HAD SOUND SLEEPING NOW.
[2018-11-20 09:37] VITALS: BP 122/68
--- NOTE | 2018-11-20 10:10 | NUR ---
C/O BACK PAIN ON 11/06. NORCO 7.5/325 PO GIVEN. CONTINUE MONITOR.
[2018-11-20 12:01] VITALS: BP 122/68
[2018-11-20] MEDS ORDERED: NORCO1 TA2 PO (12:33)
--- NOTE | 2018-11-20 13:49 | NUR ---
NO C/O PAIN NOW. TOLERATED REGULAR DIET LUNCH. NO N/V. D/C TO HOME PER ORDER. INSTRUCTION GIVEN. IV D/C'D. OVER NEEDLE CATHETER INTACT. CONDITION STABLE.
== END 2018-11-20 14:00 | disposition home or self-care (01) | DRG 812 ==
LOC: ED 22:49 → DU 11-17 01:07 → MU 11-19 16:35
PROVIDERS: Specialist; ADMIT Internal Medicine
DX: T42.6X1A Poisoning by other antiepileptic and sedative-hypnotic drugs, accidental (unintentional), initial encounter (principal); G92 Toxic encephalopathy; I10 Essential (primary) hypertension; I25.10 Atherosclerotic heart disease of native coronary artery without angina pectoris; F32.9 Major depressive disorder, single episode, unspecified; F41.9 Anxiety disorder, unspecified; T42.6X2A Poisoning by other antiepileptic and sedative-hypnotic drugs, intentional self-harm, initial encounter; W18.39XA Other fall on same level, initial encounter; Y93.89 Activity, other specified; Y92.091 Bathroom in other non-institutional residence as the place of occurrence of the external cause; Y99.8 Other external cause status; Z91.5 Personal history of self-harm; Z68.29 Body mass index [BMI] 29.0-29.9, adult; Z82.3 Family history of stroke
CPT/HCPCS: 36600; 82542; 97110-GP; 97116-GP; 97530-GP; G0378; G0480; J1885; J2405; J7030; Q0092

== ENCOUNTER 2019-04-13 13:38 | Inpatient (IN) | payer OTHER, MEDICAID ==
[~2019-04-13] VITALS: Ht 157.5 cm; Wt 81.4 kg
[~2019-04-13 13:38] MED LIST changes: +AMBIEN5 MG PO; +BACLOFEN10 MG PO; +DEPAKOTE250 MG PO; +EPZICOM1 TAB; +NIT0.4 SL; +NOR5 PO; +NORCO1 TA2 PO
[2019-04-13 14:44] LABS: BASOPHIL % 0.6 % (0-2); PLATELET COUNT 293 x10^3mcL (130-400); RED CELL DISTRIBUTION WIDTH 13.9 % (11.5-14.5)
[2019-04-13 15:24] LABS: CALCIUM 9.2 mg/dL (8.5-10.1); CARBON DIOXIDE 27.2 mmol/L (21-32); CHLORIDE SERUM 105 mmol/L (98-107); CREATININE SERUM 0.9 mg/dL (0.6-1.0); GFR1 > 60 mL/min; GLUCOSE SERUM 103 mg/dL (74-106); POTASSIUM SERUM 3.5 mmol/L (3.5-5.1); SODIUM SERUM 143 mmol/L (136-145)
[2019-04-13 15:28] LABS: ALBUMIN 3.8 g/dL (3.4-5.0); ALKALINE PHOSPHATASE 108 U/L (46-116); ALT/SGPT 23 U/L (14-59); AST/SGOT 16 U/L (15-37); TOTAL PROTEIN, SERUM 7.4 g/dL (6.4-8.2)
[2019-04-13 16:57] LABS: MAGNESIUM 2.2 mg/dL (1.8-2.4); PHOSPHOROUS 3.6 mg/dL (2.5-4.9)
[2019-04-13 17:03] LABS: CHOLESTEROL/HDL RATIO 3.1
[2019-04-13 17:05] LABS: FREE T4 1.02 ng/dL (0.76-1.46); FREE THYROXINE INDEX 2.8 ug/dL (1.4-4.5); T4(THYROXINE) 7.8 ug/dL (4.7-13.3)
[2019-04-13 17:19] VITALS: BP 143/70
[2019-04-13 17:22] VITALS: Ht 157.5 cm; Wt 81.4 kg
[2019-04-13 17:29] LABS: T3 TOTAL 1.12 ng/mL
[2019-04-13 19:10] VITALS: BP 118/69
[2019-04-13 20:27] LABS: microscopic required? YES; urine erythrocyte NEGATIVE (NEGATIVE)
[2019-04-14 06:51] LABS: BASOPHIL % 0.4 % (0-2); PLATELET COUNT 218 x10^3mcL (130-400)
[2019-04-14 07:46] LABS: CHLORIDE SERUM 108 mmol/L (98-107); SODIUM SERUM 144 mmol/L (136-145)
[2019-04-14 08:43] VITALS: BP 128/76
[2019-04-14 10:22] LABS: CALCIUM 9.1 mg/dL (8.5-10.1); CARBON DIOXIDE 27.3 mmol/L (21-32); CREATININE SERUM 0.8 mg/dL (0.6-1.0); GFR1 > 60 mL/min; GLUCOSE SERUM 96 mg/dL (74-106); MAGNESIUM 2.2 mg/dL (1.8-2.4); PHOSPHOROUS 3.7 mg/dL (2.5-4.9)
[2019-04-14 13:54] VITALS: BP 113/61
[2019-04-14 17:30] VITALS: BP 124/71
[2019-04-14 21:03] VITALS: BP 137/62
[2019-04-15 05:27] VITALS: BP 129/75
[2019-04-15 06:12] LABS: BASOPHIL % 0.4 % (0-2); PLATELET COUNT 222 x10^3mcL (130-400)
[2019-04-15 06:31] LABS: CALCIUM 8.7 mg/dL (8.5-10.1); CARBON DIOXIDE 29.8 mmol/L (21-32); CHLORIDE SERUM 108 mmol/L (98-107); CREATININE SERUM 0.7 mg/dL (0.6-1.0); GFR1 > 60 mL/min; GLUCOSE SERUM 93 mg/dL (74-106); PHOSPHOROUS 3.6 mg/dL (2.5-4.9); POTASSIUM SERUM 3.9 mmol/L (3.5-5.1); SODIUM SERUM 144 mmol/L (136-145)
[2019-04-15 08:00] VITALS: BP 136/76
[2019-04-15 11:01] VITALS: BP 136/76
[2019-04-15 12:00] VITALS: BP 118/60
== END 2019-04-15 14:40 | disposition home or self-care (01) | DRG 880 ==
LOC: ED 13:38 → DU 16:02
PROVIDERS: ADMIT Internal Medicine
DX: F41.9 Anxiety disorder, unspecified (principal); R07.89 Other chest pain; M79.602 Pain in left arm; I10 Essential (primary) hypertension; F32.9 Major depressive disorder, single episode, unspecified; I25.2 Old myocardial infarction; Z68.33 Body mass index [BMI] 33.0-33.9, adult; Z86.73 Personal history of transient ischemic attack (TIA), and cerebral infarction without residual deficits
CPT/HCPCS: 84439; 97116-GP; G0378; J7030; Q0092

== ENCOUNTER 2019-05-28 08:24 | Inpatient (IN) | payer OTHER, MEDICAID ==
[~2019-05-28] VITALS: Ht 162.6 cm; Wt 88.4 kg
[2019-05-28 09:02] LABS: UA SPECIFIC GRAVITY 1.025 (1.005-1.035); microscopic required? YES; urine erythrocyte TRACE (NEGATIVE)
[2019-05-28 09:09] LABS: PLATELET COUNT 167 x10^3mcL (130-400); RED CELL DISTRIBUTION WIDTH 13.9 % (11.5-14.5)
[2019-05-28 10:21] LABS: BAND NEUTROPHIL 1 % (0-10); BASOPHIL 0 % (0-2); MONOCYTE 12 % (0-7); PLATELET MORPHOLOGY PLATELETS NORMAL; SEGMENTED NEUTROPHILS 79 % (37-75); rbc morphology (normal/abnorm) ABNORMAL (NORMAL)
[2019-05-28 10:25] LABS: AMPHETAMINE QUAL UR NONE DETECTED (See below)
[2019-05-28 10:38] LABS: SODIUM SERUM 143 mmol/L (136-145)
[2019-05-28 10:39] LABS: CHLORIDE SERUM 110 mmol/L (98-107); POTASSIUM SERUM 4.8 mmol/L (3.5-5.1)
[2019-05-28 10:40] LABS: CARBON DIOXIDE < 5 mmol/L (21-32); GLUCOSE SERUM 169 mg/dL (74-106)
[2019-05-28 10:41] LABS: ALBUMIN 4.2 g/dL (3.4-5.0); ALKALINE PHOSPHATASE 114 U/L (46-116); ALT/SGPT 20 U/L (14-59); AST/SGOT 8 U/L (15-37); BILIRUBIN TOTAL 0.26 mg/dL (0.20-1.00); CHOLESTEROL 202 mg/dL (<200); CREATININE SERUM 0.8 mg/dL (0.6-1.0); GFR1 > 60 mL/min; HDL CHOLESTEROL 82 mg/dL (40-60); LIPASE 171 IU/L (73-393); MAGNESIUM 2.3 mg/dL (1.8-2.4); T4(THYROXINE) 6.7 ug/dL (4.7-13.3); TOTAL PROTEIN, SERUM 8.5 g/dL (6.4-8.2)
[2019-05-28 16:52] VITALS: BP 144/87
[2019-05-28 18:03] LABS: CALCIUM 9.3 mg/dL (8.5-10.1); CREATININE SERUM 1.8 mg/dL (0.6-1.0)
[2019-05-28 18:11] LABS: POTASSIUM SERUM 6.4 mmol/L (3.5-5.1)
[2019-05-28 19:24] VITALS: BP 155/82
[2019-05-28 20:55] LABS: CHLORIDE SERUM 118 mmol/L (98-107); CREATININE SERUM 2.1 mg/dL (0.6-1.0); GFR1 25 mL/min; GLUCOSE SERUM 176 mg/dL (74-106); POTASSIUM SERUM 4.9 mmol/L (3.5-5.1); SODIUM SERUM 150 mmol/L (136-145)
[2019-05-28 21:00] VITALS: BP 155/82
[2019-05-28 21:00] LABS: CALCIUM 20.3 mg/dL (8.5-10.1); CARBON DIOXIDE < 5.0 mmol/L (21-32)
[2019-05-28 21:18] LABS: OSMOLALITY SERUM 340 mOsm/kg (278-298)
[2019-05-29] VITALS (15 sets, daily range): BP systolic 103–160; BP diastolic 53–85
[2019-05-29 02:56] LABS: CALCIUM 9.5 mg/dL (8.5-10.1); CARBON DIOXIDE 11.7 mmol/L (21-32); CREATININE SERUM 3.8 mg/dL (0.6-1.0); POTASSIUM SERUM 4.5 mmol/L (3.5-5.1)
[2019-05-29 05:37] LABS: BASOPHIL % 0.1 % (0-2); PLATELET COUNT 238 x10^3mcL (130-400)
[2019-05-29 05:48] LABS: CALCIUM 8.7 mg/dL (8.5-10.1); MAGNESIUM 2.3 mg/dL (1.8-2.4); POTASSIUM SERUM 4.4 mmol/L (3.5-5.1)
[2019-05-29 05:58] LABS: CARBON DIOXIDE 5.9 mmol/L (21-32)
[2019-05-29 09:20] LABS: CALCIUM 8.1 mg/dL (8.5-10.1); POTASSIUM SERUM 3.6 mmol/L (3.5-5.1)
[2019-05-29 09:24] LABS: CREATININE SERUM 4.4 mg/dL (0.6-1.0)
[2019-05-29 14:50] LABS: CALCIUM 8.1 mg/dL (8.5-10.1); CARBON DIOXIDE 27.6 mmol/L (21-32); CREATININE SERUM 2.5 mg/dL (0.6-1.0)
[2019-05-29 14:54] LABS: POTASSIUM SERUM 2.4 mmol/L (3.5-5.1)
[2019-05-29 18:27] LABS: CALCIUM 6.7 mg/dL (8.5-10.1); CARBON DIOXIDE 27.4 mmol/L (21-32); CREATININE SERUM 3.1 mg/dL (0.6-1.0)
[2019-05-29 18:29] LABS: POTASSIUM SERUM 2.6 mmol/L (3.5-5.1)
[2019-05-29 20:21] LABS: CARBON DIOXIDE 28.7 mmol/L (21-32); CREATININE SERUM 3.4 mg/dL (0.6-1.0)
[2019-05-29 20:24] LABS: POTASSIUM SERUM 2.7 mmol/L (3.5-5.1)
[2019-05-30] VITALS (19 sets, daily range): BP systolic 119–142; BP diastolic 51–70
[2019-05-30 01:16] LABS: CALCIUM 6.9 mg/dL (8.5-10.1); CARBON DIOXIDE 30.3 mmol/L (21-32)
[2019-05-30 01:19] LABS: CREATININE SERUM 4.1 mg/dL (0.6-1.0); POTASSIUM SERUM 2.9 mmol/L (3.5-5.1)
[2019-05-30 05:48] LABS: CALCIUM 6.9 mg/dL (8.5-10.1); CARBON DIOXIDE 31.1 mmol/L (21-32); MAGNESIUM 1.5 mg/dL (1.8-2.4); PHOSPHOROUS 3.5 mg/dL (2.5-4.9); POTASSIUM SERUM 3.2 mmol/L (3.5-5.1)
[2019-05-30 05:52] LABS: CREATININE SERUM 4.5 mg/dL (0.6-1.0)
[2019-05-30 06:04] LABS: BASOPHIL % 0 % (0-2); PLATELET COUNT 127 x10^3mcL (130-400)
[2019-05-30 08:50] LABS: CALCIUM 7.1 mg/dL (8.5-10.1); CARBON DIOXIDE 32.4 mmol/L (21-32); POTASSIUM SERUM 3.4 mmol/L (3.5-5.1)
[2019-05-30 08:57] LABS: CREATININE SERUM 5.1 mg/dL (0.6-1.0)
[2019-05-30 12:13] LABS: CALCIUM 7.6 mg/dL (8.5-10.1); CARBON DIOXIDE 32.4 mmol/L (21-32); POTASSIUM SERUM 3.1 mmol/L (3.5-5.1)
[2019-05-31] VITALS (18 sets, daily range): BP systolic 124–154; BP diastolic 62–76
[2019-05-31 04:34] LABS: RED CELL DISTRIBUTION WIDTH 13.6 % (11.5-14.5)
[2019-05-31 04:38] LABS: BASOPHIL % 0 % (0-2); PLATELET COUNT 116 x10^3mcL (130-400)
[2019-05-31 04:42] LABS: CALCIUM 7.9 mg/dL (8.5-10.1); CARBON DIOXIDE 31.5 mmol/L (21-32); MAGNESIUM 1.9 mg/dL (1.8-2.4); PHOSPHOROUS 2.7 mg/dL (2.5-4.9)
[2019-05-31 04:47] LABS: POTASSIUM SERUM 2.9 mmol/L (3.5-5.1)
[2019-05-31 04:48] LABS: CREATININE SERUM 5.6 mg/dL (0.6-1.0)
[2019-06-01] VITALS (19 sets, daily range): BP systolic 93–147; BP diastolic 55–71
[2019-06-01 04:35] LABS: BASOPHIL % 0.3 % (0-2); PLATELET COUNT 121 x10^3mcL (130-400); RED CELL DISTRIBUTION WIDTH 13.9 % (11.5-14.5)
[2019-06-01 04:59] LABS: CALCIUM 8.8 mg/dL (8.5-10.1); CARBON DIOXIDE 33.4 mmol/L (21-32); MAGNESIUM 1.9 mg/dL (1.8-2.4); PHOSPHOROUS 3.7 mg/dL (2.5-4.9); POTASSIUM SERUM 3.5 mmol/L (3.5-5.1)
[2019-06-01 05:10] LABS: CREATININE SERUM 5.1 mg/dL (0.6-1.0)
[2019-06-02] VITALS (12 sets, daily range): BP systolic 94–1547; BP diastolic 62–91
[2019-06-02 05:10] LABS: BASOPHIL % 0.7 % (0-2); RED CELL DISTRIBUTION WIDTH 13.5 % (11.5-14.5)
[2019-06-02 05:17] LABS: CALCIUM 8.8 mg/dL (8.5-10.1); CARBON DIOXIDE 30.3 mmol/L (21-32); MAGNESIUM 2.2 mg/dL (1.8-2.4); POTASSIUM SERUM 3.2 mmol/L (3.5-5.1)
[2019-06-02 05:19] LABS: CREATININE SERUM 8.2 mg/dL (0.6-1.0)
[2019-06-02 05:48] LABS: PLATELET COUNT 127 x10^3mcL (130-400)
[2019-06-03 03:25] VITALS: BP 131/69
[2019-06-03 05:35] LABS: BASOPHIL % 0.1 % (0-2)
[2019-06-03 05:53] LABS: PLATELET COUNT 163 x10^3mcL (130-400); RED CELL DISTRIBUTION WIDTH 13.4 % (11.5-14.5)
[2019-06-03 06:03] LABS: CALCIUM 8.6 mg/dL (8.5-10.1); CARBON DIOXIDE 26.3 mmol/L (21-32); MAGNESIUM 2.1 mg/dL (1.8-2.4); PHOSPHOROUS 5.6 mg/dL (2.5-4.9)
[2019-06-03 06:06] LABS: POTASSIUM SERUM 2.9 mmol/L (3.5-5.1)
[2019-06-03 06:07] LABS: CREATININE SERUM 8.1 mg/dL (0.6-1.0)
[2019-06-03 07:20] VITALS: BP 148/67
[2019-06-03 12:15] VITALS: BP 120/54
[2019-06-03 16:18] VITALS: BP 118/58
[2019-06-03 19:20] VITALS: BP 132/61
[2019-06-03 23:02] VITALS: BP 123/66
[2019-06-04 03:04] VITALS: BP 125/59
[2019-06-04 05:27] LABS: CALCIUM 8.4 mg/dL (8.5-10.1); MAGNESIUM 2.6 mg/dL (1.8-2.4); PHOSPHOROUS 6.9 mg/dL (2.5-4.9); POTASSIUM SERUM 3.2 mmol/L (3.5-5.1)
[2019-06-04 05:31] LABS: CREATININE SERUM 10.8 mg/dL (0.6-1.0)
[2019-06-04 05:40] LABS: BASOPHIL % 0.2 % (0-2); RED CELL DISTRIBUTION WIDTH 13.4 % (11.5-14.5)
[2019-06-04 05:44] LABS: PLATELET COUNT 96 x10^3mcL (130-400)
[2019-06-04 07:30] VITALS: BP 124/55
[2019-06-04 11:32] VITALS: BP 117/69
[2019-06-04 12:15] LABS: CALCIUM 9.4 mg/dL (8.5-10.1); CARBON DIOXIDE 22.7 mmol/L (21-32)
[2019-06-04 12:28] LABS: CREATININE SERUM 6.4 mg/dL (0.6-1.0)
[2019-06-04 15:29] VITALS: BP 153/78
[2019-06-04 21:18] VITALS: BP 132/75
[2019-06-05] VITALS (14 sets, daily range): BP systolic 94–121; BP diastolic 60–88
[2019-06-05 07:24] LABS: BASOPHIL % 0.4 % (0-2); RED CELL DISTRIBUTION WIDTH 13.7 % (11.5-14.5)
[2019-06-05 07:27] LABS: CALCIUM 9.1 mg/dL (8.5-10.1); CARBON DIOXIDE 18.8 mmol/L (21-32); MAGNESIUM 2.2 mg/dL (1.8-2.4); PHOSPHOROUS 5.6 mg/dL (2.5-4.9); POTASSIUM SERUM 3.7 mmol/L (3.5-5.1)
[2019-06-05 07:29] LABS: CREATININE SERUM 9.6 mg/dL (0.6-1.0)
[2019-06-05 10:02] LABS: PLATELET COUNT 205 x10^3mcL (130-400); RED CELL DISTRIBUTION WIDTH 13.7 % (11.5-14.5)
[2019-06-05 10:18] LABS: BILIRUBIN TOTAL 0.9 mg/dL (0.20-1.00); CARBON DIOXIDE 20.3 mmol/L (21-32); MAGNESIUM 2.1 mg/dL (1.8-2.4); PHOSPHOROUS 7.3 mg/dL (2.5-4.9); POTASSIUM SERUM 3.9 mmol/L (3.5-5.1)
[2019-06-05 10:19] LABS: ALBUMIN 2.2 g/dL (3.4-5.0)
[2019-06-05 10:25] LABS: rbc morphology (normal/abnorm) NORMAL (NORMAL)
[2019-06-05 10:25] LABS: BASOPHIL % 0 % (0-2)
[2019-06-06] VITALS (17 sets, daily range): BP systolic 92–122; BP diastolic 48–76
[2019-06-06 05:14] LABS: BASOPHIL % 0.3 % (0-2); PLATELET COUNT 218 x10^3mcL (130-400); RED CELL DISTRIBUTION WIDTH 13.9 % (11.5-14.5)
[2019-06-06 05:40] LABS: CALCIUM 8.5 mg/dL (8.5-10.1); CARBON DIOXIDE 19.7 mmol/L (21-32); MAGNESIUM 2.2 mg/dL (1.8-2.4); PHOSPHOROUS 6.8 mg/dL (2.5-4.9); POTASSIUM SERUM 4.8 mmol/L (3.5-5.1)
[2019-06-07] VITALS (18 sets, daily range): BP systolic 92–138; BP diastolic 46–71
[2019-06-07 05:34] LABS: BASOPHIL % 0.4 % (0-2); PLATELET COUNT 212 x10^3mcL (130-400); RED CELL DISTRIBUTION WIDTH 13.8 % (11.5-14.5)
[2019-06-07 05:39] LABS: CALCIUM 8.5 mg/dL (8.5-10.1); CARBON DIOXIDE 23.1 mmol/L (21-32); MAGNESIUM 1.9 mg/dL (1.8-2.4); POTASSIUM SERUM 3.5 mmol/L (3.5-5.1)
[2019-06-07 05:41] LABS: CREATININE SERUM 8.2 mg/dL (0.6-1.0)
[2019-06-08] VITALS (17 sets, daily range): BP systolic 85–133; BP diastolic 49–87
[2019-06-08 05:32] LABS: BASOPHIL % 0.3 % (0-2); PLATELET COUNT 229 x10^3mcL (130-400); RED CELL DISTRIBUTION WIDTH 13.9 % (11.5-14.5)
[2019-06-08 06:41] LABS: CALCIUM 8.3 mg/dL (8.5-10.1); CARBON DIOXIDE 21.6 mmol/L (21-32); MAGNESIUM 2.1 mg/dL (1.8-2.4); PHOSPHOROUS 8.8 mg/dL (2.5-4.9); POTASSIUM SERUM 3.8 mmol/L (3.5-5.1)
[2019-06-08 06:48] LABS: CREATININE SERUM 10.3 mg/dL (0.6-1.0)
[2019-06-09] VITALS (18 sets, daily range): BP systolic 95–136; BP diastolic 47–69
[2019-06-09 05:50] LABS: BASOPHIL % 0.2 % (0-2); PLATELET COUNT 200 x10^3mcL (130-400); RED CELL DISTRIBUTION WIDTH 13.6 % (11.5-14.5)
[2019-06-09 06:38] LABS: CALCIUM 8.1 mg/dL (8.5-10.1); CARBON DIOXIDE 20.8 mmol/L (21-32); MAGNESIUM 2.2 mg/dL (1.8-2.4); POTASSIUM SERUM 3.9 mmol/L (3.5-5.1)
[2019-06-09 06:40] LABS: CREATININE SERUM 12.3 mg/dL (0.6-1.0)
[2019-06-09 08:19] LABS: PHOSPHOROUS 10.4 mg/dL (2.5-4.9)
[2019-06-10] VITALS (18 sets, daily range): BP systolic 94–154; BP diastolic 53–82
[2019-06-10 05:54] LABS: BASOPHIL % 0.4 % (0-2); PLATELET COUNT 221 x10^3mcL (130-400); RED CELL DISTRIBUTION WIDTH 13.4 % (11.5-14.5)
[2019-06-10 06:02] LABS: CALCIUM 8.8 mg/dL (8.5-10.1); CARBON DIOXIDE 26.1 mmol/L (21-32); MAGNESIUM 1.9 mg/dL (1.8-2.4); PHOSPHOROUS 6.6 mg/dL (2.5-4.9); POTASSIUM SERUM 3.9 mmol/L (3.5-5.1)
[2019-06-10 06:16] LABS: CREATININE SERUM 7.6 mg/dL (0.6-1.0)
[2019-06-11] VITALS (17 sets, daily range): BP systolic 106–140; BP diastolic 61–82
[2019-06-11 05:41] LABS: BASOPHIL % 0.3 % (0-2); PLATELET COUNT 261 x10^3mcL (130-400); RED CELL DISTRIBUTION WIDTH 13.3 % (11.5-14.5)
[2019-06-11 05:49] LABS: CALCIUM 8.9 mg/dL (8.5-10.1); PHOSPHOROUS 7.8 mg/dL (2.5-4.9); POTASSIUM SERUM 3.9 mmol/L (3.5-5.1)
[2019-06-11 05:59] LABS: CREATININE SERUM 9.7 mg/dL (0.6-1.0)
[2019-06-12] VITALS (18 sets, daily range): BP systolic 94–142; BP diastolic 56–85
[2019-06-12 05:17] LABS: BASOPHIL % 0.3 % (0-2); PLATELET COUNT 250 x10^3mcL (130-400); RED CELL DISTRIBUTION WIDTH 13.7 % (11.5-14.5)
[2019-06-12 05:42] LABS: CALCIUM 8.5 mg/dL (8.5-10.1); CARBON DIOXIDE 29.5 mmol/L (21-32); MAGNESIUM 1.7 mg/dL (1.8-2.4); PHOSPHOROUS 5.5 mg/dL (2.5-4.9); POTASSIUM SERUM 3.5 mmol/L (3.5-5.1)
[2019-06-12 05:48] LABS: CREATININE SERUM 6.5 mg/dL (0.6-1.0)
[2019-06-13] VITALS (17 sets, daily range): BP systolic 94–133; BP diastolic 50–80
[2019-06-13 05:52] LABS: CALCIUM 9.2 mg/dL (8.5-10.1); CARBON DIOXIDE 26.7 mmol/L (21-32); PHOSPHOROUS 6.5 mg/dL (2.5-4.9); POTASSIUM SERUM 3.6 mmol/L (3.5-5.1)
[2019-06-13 05:57] LABS: CREATININE SERUM 8.4 mg/dL (0.6-1.0)
[2019-06-13 06:24] LABS: BASOPHIL % 0.2 % (0-2); PLATELET COUNT 203 x10^3mcL (130-400); RED CELL DISTRIBUTION WIDTH 13.5 % (11.5-14.5)
[2019-06-14] VITALS (18 sets, daily range): BP systolic 91–185; BP diastolic 52–80
[2019-06-14 05:24] LABS: BASOPHIL % 0.2 % (0-2); PLATELET COUNT 243 x10^3mcL (130-400); RED CELL DISTRIBUTION WIDTH 13.4 % (11.5-14.5)
[2019-06-14 05:52] LABS: CALCIUM 8.9 mg/dL (8.5-10.1); CARBON DIOXIDE 23.1 mmol/L (21-32); MAGNESIUM 1.8 mg/dL (1.8-2.4); PHOSPHOROUS 5.6 mg/dL (2.5-4.9); POTASSIUM SERUM 3.9 mmol/L (3.5-5.1)
[2019-06-14 05:54] LABS: CREATININE SERUM 6.1 mg/dL (0.6-1.0)
[2019-06-15] VITALS (19 sets, daily range): BP systolic 96–137; BP diastolic 53–107
[2019-06-15 04:20] LABS: BASOPHIL % 0.3 % (0-2); PLATELET COUNT 273 x10^3mcL (130-400); RED CELL DISTRIBUTION WIDTH 13.2 % (11.5-14.5)
[2019-06-15 04:59] LABS: CALCIUM 8.5 mg/dL (8.5-10.1); CARBON DIOXIDE 24.8 mmol/L (21-32); MAGNESIUM 1.7 mg/dL (1.8-2.4); PHOSPHOROUS 6.5 mg/dL (2.5-4.9); POTASSIUM SERUM 3.7 mmol/L (3.5-5.1)
[2019-06-15 05:03] LABS: CREATININE SERUM 7.9 mg/dL (0.6-1.0)
[2019-06-16] VITALS (10 sets, daily range): BP systolic 87–120; BP diastolic 44–66
[2019-06-16 05:17] LABS: BASOPHIL % 0.3 % (0-2); PLATELET COUNT 250 x10^3mcL (130-400); RED CELL DISTRIBUTION WIDTH 13.2 % (11.5-14.5)
[2019-06-16 07:39] LABS: CALCIUM 8.7 mg/dL (8.5-10.1); CARBON DIOXIDE 20.9 mmol/L (21-32); PHOSPHOROUS 7.2 mg/dL (2.5-4.9); POTASSIUM SERUM 4.1 mmol/L (3.5-5.1)
[2019-06-16 07:44] LABS: CREATININE SERUM 9.2 mg/dL (0.6-1.0)
[2019-06-17 03:18] VITALS: BP 90/49
[2019-06-17 07:40] VITALS: BP 78/35
[2019-06-17 07:41] VITALS: Ht 162.6 cm; Wt 88.4 kg
[2019-06-17 08:05] VITALS: BP 61/28
== END 2019-06-17 11:48 | disposition expired | DRG 870 ==
LOC: ED 08:24 → DU 10:35 → IC 10:35 → DU 06-04 17:24 → IC 06-05 06:09
PROVIDERS: Emergency Medicine; Internal Medicine; Student in an Organized Health Care Education/Training Program; ADMIT Family Medicine
PROC: 5A1955Z Respiratory Ventilation, Greater than 96 Consecutive Hours (ICD-10-PCS; principal; 2019-05-29)
PROC: 0BH17EZ Insertion of Endotracheal Airway into Trachea, Via Natural or Artificial Opening (ICD-10-PCS; 2019-05-29)
PROC: 5A1D70Z Performance of Urinary Filtration, Intermittent, Less than 6 Hours Per Day (ICD-10-PCS; 2019-05-29)
PROC: 06HY33Z Insertion of Infusion Device into Lower Vein, Percutaneous Approach (ICD-10-PCS; 2019-05-29)
PROC: B54BZZA Ultrasonography of Right Lower Extremity Veins, Guidance (ICD-10-PCS; 2019-05-29)
PROC: 02HV33Z Insertion of Infusion Device into Superior Vena Cava, Percutaneous Approach (ICD-10-PCS; 2019-05-29)
PROC: B548ZZA Ultrasonography of Superior Vena Cava, Guidance (ICD-10-PCS; 2019-05-29)
PROC: 05HY33Z Insertion of Infusion Device into Upper Vein, Percutaneous Approach (ICD-10-PCS; 2019-05-29)
PROC: B54NZZA Ultrasonography of Left Upper Extremity Veins, Guidance (ICD-10-PCS; 2019-05-29)
PROC: 5A1D70Z Performance of Urinary Filtration, Intermittent, Less than 6 Hours Per Day (ICD-10-PCS; 2019-05-30)
PROC: 5A1D70Z Performance of Urinary Filtration, Intermittent, Less than 6 Hours Per Day (ICD-10-PCS; 2019-05-31)
PROC: 5A1D70Z Performance of Urinary Filtration, Intermittent, Less than 6 Hours Per Day (ICD-10-PCS; 2019-06-02)
PROC: 5A1D70Z Performance of Urinary Filtration, Intermittent, Less than 6 Hours Per Day (ICD-10-PCS; 2019-06-04)
PROC: 0JH63XZ Insertion of Tunneled Vascular Access Device into Chest Subcutaneous Tissue and Fascia, Percutaneous Approach (ICD-10-PCS; 2019-06-04)
PROC: 02HV33Z Insertion of Infusion Device into Superior Vena Cava, Percutaneous Approach (ICD-10-PCS; 2019-06-04)
PROC: B5181ZA Fluoroscopy of Superior Vena Cava using Low Osmolar Contrast, Guidance (ICD-10-PCS; 2019-06-04)
PROC: B548ZZA Ultrasonography of Superior Vena Cava, Guidance (ICD-10-PCS; 2019-06-04)
PROC: 04HY32Z Insertion of Monitoring Device into Lower Artery, Percutaneous Approach (ICD-10-PCS; 2019-06-05)
PROC: 5A12012 Performance of Cardiac Output, Single, Manual (ICD-10-PCS; 2019-06-05)
PROC: 5A1955Z Respiratory Ventilation, Greater than 96 Consecutive Hours (ICD-10-PCS; 2019-06-05)
PROC: 0BH17EZ Insertion of Endotracheal Airway into Trachea, Via Natural or Artificial Opening (ICD-10-PCS; 2019-06-05)
PROC: 5A12012 Performance of Cardiac Output, Single, Manual (ICD-10-PCS; 2019-06-05)
PROC: 5A1D70Z Performance of Urinary Filtration, Intermittent, Less than 6 Hours Per Day (ICD-10-PCS; 2019-06-06)
PROC: 5A1D70Z Performance of Urinary Filtration, Intermittent, Less than 6 Hours Per Day (ICD-10-PCS; 2019-06-09)
PROC: 5A1D70Z Performance of Urinary Filtration, Intermittent, Less than 6 Hours Per Day (ICD-10-PCS; 2019-06-11)
PROC: 5A1D70Z Performance of Urinary Filtration, Intermittent, Less than 6 Hours Per Day (ICD-10-PCS; 2019-06-13)
DX: A41.9 Sepsis, unspecified organism (principal); R65.21 Severe sepsis with septic shock; J69.0 Pneumonitis due to inhalation of food and vomit; K72.00 Acute and subacute hepatic failure without coma; N17.0 Acute kidney failure with tubular necrosis; G93.41 Metabolic encephalopathy; N18.6 End stage renal disease; I21.4 Non-ST elevation (NSTEMI) myocardial infarction; J96.01 Acute respiratory failure with hypoxia; E87.2 Acidosis; I12.0 Hypertensive chronic kidney disease with stage 5 chronic kidney disease or end stage renal disease; I51.81 Takotsubo syndrome; R57.1 Hypovolemic shock; T52.8X2A Toxic effect of other organic solvents, intentional self-harm, initial encounter; E87.6 Hypokalemia; I46.9 Cardiac arrest, cause unspecified; T81.82XA Emphysema (subcutaneous) resulting from a procedure, initial encounter; D75.1 Secondary polycythemia; F32.9 Major depressive disorder, single episode, unspecified; F43.10 Post-traumatic stress disorder, unspecified; F41.9 Anxiety disorder, unspecified; G40.909 Epilepsy, unspecified, not intractable, without status epilepticus; E66.9 Obesity, unspecified; I25.2 Old myocardial infarction; Z66 Do not resuscitate; Z91.5 Personal history of self-harm; Z78.1 Physical restraint status; Z86.73 Personal history of transient ischemic attack (TIA), and cerebral infarction without residual deficits; Z68.33 Body mass index [BMI] 33.0-33.9, adult; Y92.092 Bedroom in other non-institutional residence as the place of occurrence of the external cause; Y65.8 Other specified misadventures during surgical and medical care; Y92.230 Patient room in hospital as the place of occurrence of the external cause
CPT/HCPCS: 36556; 36600; 82693; 82962; 83880; 86580; 87046; 87046-59; 92526-GN; 92610-GN; 94150; 97110-GP; 97112-GP; A4301; A4628; C9113; G0378; G0480; J0171; J0330; J0610; J1170; J1200; J1451; J1642; J1644; J1815; J1940; J1953; J1956; J2001; J2060; J2250; J2270; J2370; J2543; J2704; J2920; J3010; J3370; J3480; J3490; J7030; J7040; J7042; J7050; J7120; Q0092; Q9967